=== PATIENT | male | born 1960 ===

== ENCOUNTER 2018-08-22 19:53 | Emergency (ER) | payer OTHER, MEDICARE ==
[2018-08-22 20:34] LABS: URINE APPEARANCE CLEAR; URINE COLOR YELLOW
[2018-08-22 20:35] LABS: URINE BILIRUBIN NEGATIVE (NEGATIVE); URINE BLOOD LARGE (NEGATIVE); URINE GLUCOSE (UA) NEGATIVE (NEGATIVE); URINE KETONE NEGATIVE (NEGATIVE); URINE LEUKOCYTE ESTERASE NEGATIVE (NEGATIVE); URINE NITRITE NEGATIVE (NEGATIVE); URINE PROTEIN NEGATIVE (NEGATIVE); URINE UROBILINOGEN 0.2 E.U./dL (0.20 - 1.00)
[2018-08-22] MEDS ORDERED: 0.9 % SODIUM CHLORIDE 1,000 ML BAG IV ONE (20:36)
[2018-08-22] MEDS ORDERED: KETOROLAC 30 MG/ML VIAL IVP ONE (20:36)
[2018-08-22 20:41] LABS: URINE BACTERIA NONE SEEN; URINE EPITHELIAL CELLS 0 - 2 (FEW); URINE WBC 0 - 2 (0-2/hpf)
--- NOTE | 2018-08-22 20:46 | Emergency Department Record ---
History of Present Illness - General Chief complaint: Pain Stated complaint: PAIN IN GROIN Time Seen by Provider: 08/22/18 20:15 Source: Patient Mode of Arrival: Ambulatory Limitations: No limitations - History of Present Illness Initial comments: pt has had r groin pain for 3 days that is getting progressively worse. no n/v/c/d MD Complaint: Abdominal Pain Onset/Timin -: Days(s) Severity scale (1-10): 6 Quality: Sharp Consistency: Constant, Getting worse Improves with: Nothing Associated Symptoms: Denies other symptoms - Related Data Home Medications Medication Instructions Recorded Confirmed Last Taken Carbidopa/Levodopa 25Mg/100Mg 2.5 each PO TID 08/22/18 08/22/18 Unknown [Sinemet] Carbidopa/Levodopa [Sinemet Cr 1 each PO QHS 08/22/18 08/22/18 Unknown 50-200 Tablet] Diazepam 5 mg PO Q12H PRN 08/22/18 08/22/18 Unknown Escitalopram Oxalate [Lexapro] 20 mg PO DAILY 08/22/18 08/22/18 Unknown Nadolol 20 mg PO QHS 08/22/18 08/22/18 Unknown Temazepam 15 mg PO QHS 08/22/18 08/22/18 Unknown Previous Rx's Medication Instructions Recorded Hydrocodone/Acetaminophen [[place] 1 each PO Q6HR #12 tablet 08/22/18 5-325 Tablet] Allergies Allergy/AdvReac Type Severity Reaction Status Date / Time No Known Drug Allergies Allergy Verified 08/22/18 20:08 Travel Screening - Travel/Exposure Within Last 30 Days Have you traveled within the last 30 days?: No - Travel Symptoms Symptom Screening: None Review of Systems Reviewed: No additional complaints except as noted below Constitutional: Reports: As per HPI. Denies: Chills, Fever, Malaise, Night sweats, Weakness, Weight change Eyes: Reports: As per HPI. Denies: Eye discharge, Eye pain, Photophobia, Vision change ENT: Reports: As per HPI. Denies: Congestion, Dental pain, Ear pain, Epistaxis, Hearing loss, Throat pain Respiratory: Reports: As per HPI. Denies: Cough, Dyspnea, Hemoptysis, Stridor, Wheezes Cardiovascular: Reports: As per HPI. Denies: Arrhythmia, Chest pain, Dyspnea on exertion, Edema, Murmurs, Orthopnea, Palpitations, Paroxysmal nocturnal dyspnea, Rheumatic Fever, Syncope Endocrine: Reports: As per HPI. Denies: Fatigue, Heat or cold intolerance, Polydipsia, Polyuria Gastrointestinal: Reports: As per HPI, Abdominal pain. Denies: Constipation, Diarrhea, Hematemesis, Hematochezia, Melena, Nausea, Vomiting Genitourinary: Reports: As per HPI. Denies: Dysuria, Frequency, Hematuria, Incontinence, Retention, Testicular pain, Testicular mass, Urgency Musculoskeletal: Reports: As per HPI. Denies: Arthralgia, Back pain, Gout, Joint swelling, Myalgia, Neck pain Skin: Reports: As per HPI. Denies: Bruising, Change in color, Change in hair/nails, Lesions, Pruritus, Rash Neurological: Reports: As per HPI. Denies: Abnormal gait, Confusion, Headache, Numbness, Paresthesias, Seizure, Tingling, Tremors, Vertigo, Weakness Psychiatric: Reports: As per HPI. Denies: Anxiety, Auditory hallucinations, Depression, Homicidal thoughts, Suicidal thoughts, Visual hallucinations Hematological/Lymphatic: Reports: As per HPI. Denies: Anemia, Blood Clots, Easy bleeding, Easy bruising, Swollen glands Past Medical History - SOCIAL HISTORY Smoking Status: Former smoker - RESPIRATORY Hx Respiratory Disorders: Yes Hx Pneumonia: Yes Hx Sleep Apnea: Yes Hx of CPAP: No (getting CPAP soon.) - CARDIOVASCULAR Hx Cardio Disorders: Yes Hx Hypertension: Yes - NEURO Hx Neuro Disorders: Yes Hx Parkinson's Disease: Yes - GI Hx GI Disorders: Yes Hx Reflux: Yes - Hx Genitourinary Disorders: Yes Hx Prostate Problems: Yes - ENDOCRINE Hx Endocrine Disorders: No - MUSCULOSKELETAL Hx Musculoskeletal Disorders: Yes Hx Arthritis: Yes - PSYCH Hx Psych Problems: Yes Hx Anxiety: Yes Hx Depression: Yes - HEMATOLOGY/ONCOLOGY Hx Hematology/Oncology Disorders: No Family Medical History Any Significant Family History?: Yes Family Hx Comment (NOT TO BE USED IN PLACE OF ITEMS BELOW): Mom w/Parkinson's Hx Cancer: Brother/Sister *Cancer Comment: Sister at 8yo Hx Dementia: Father, Mother Hx Depression: Mother, Brother/Sister *Depression Comment: Brother suicide Hx Diabetes: Mother Hx HTN: Mother Hx Stroke: Father Physical Exam - General General Appearance: Alert, Oriented x3, Cooperative, Mild distress - Head Head exam: Normal inspection - Eye Eye exam: Normal appearance, PERRL, EOMI Pupils: Normal accommodation - ENT ENT exam: Normal exam, Mucous membranes moist, Normal external ear exam, Normal orophraynx Ear exam: Normal external inspection. negative: External canal tenderness Nasal Exam: Normal inspection. negative: Discharge, Sinus tenderness Mouth exam: Normal external inspection, Tongue normal Teeth exam: Normal inspection. negative: Dental caries Throat exam: Normal inspection. negative: Tonsillar erythema, Tonsillar exudate - Neck Neck exam: Normal inspection, Full ROM. negative: Tenderness - Respiratory Respiratory exam: Normal lung sounds bilaterally. negative: Respiratory distress - Cardiovascular Cardiovascular Exam: Regular rate, Normal rhythm, Normal heart sounds - GI/Abdominal GI/Abdominal exam: Soft, Normal bowel sounds, Tenderness (rlq/groin) - Rectal Rectal exam: Deferred - exam: Deferred - Extremities Extremities exam: Normal inspection, Full ROM, Normal capillary refill. negative: Tenderness - Back Back exam: Reports: Normal inspection, Full ROM. Denies: Muscle spasm, Rash noted, Tenderness - Neurological Neurological exam: Alert, CN II-XII intact, Normal gait, Oriented X3 - Psychiatric Psychiatric exam: Normal affect, Normal mood - Skin Skin exam: Dry, Intact, Normal color, Warm Course Vital Signs 08/22/18 20:06 Temperature 97.4 F L Pulse Rate [ 97 H Left] Respiratory 16 Rate Blood Pressure 148/124 [Left Arm] Pulse Ox 98 Medical Decision Making - Lab Data Result diagrams: 08/22/18 20:55 08/22/18 20:55 Lab Results 08/22/18 Range/Units 20:34 Urine Color Yellow Urine Appearance Clear Urine pH 7.5 (5.0-8.0) Ur Specific [place] 1.010 (1.002-1.030) Urine Protein Negative (NEGATIVE) Urine Glucose (UA) Negative (NEGATIVE) Urine Ketones Negative (NEGATIVE) Urine Blood Large H (NEGATIVE) Urine Nitrite Negative (NEGATIVE) Urine Bilirubin Negative (NEGATIVE) Urine Urobilinogen 0.2 (0.20 - 1.00) E.U./dL Ur Leukocyte Esterase Negative (NEGATIVE) Disposition Disposition: Discharge Clinical Impression: Renal lithiasis, Lung nodule, Renal cyst Hydronephrosis Qualifiers: Hydronephrosis type: with ureteral calculous obstruction Qualified Code(s): N13.2 - Hydronephrosis with renal and ureteral calculous obstruction Disposition: Home, Self-Care Condition: (1) Good Instructions: Kidney Stones (ED), How to Strain Your Urine (ED) Additional Instructions: follow up with family doctor. return sooner if worse. push fluids. motrin for pain with food. have repeat ct of lung in 6 months Prescriptions: Hydrocodone/Acetaminophen [[place] 5-325 Tablet] 1 each PO Q6HR #12 tablet Referrals: ALEISHA JOHNSON M.D. [MEDICAL DOCTOR] - [facility] [Provider Group] Forms: Patient Portal Access Quality - Quality Measures Quality Measures: N/A - Blood Pressure Screening Does Patient Have Any of the Following: No Blood Pressure Classification: Hypertensive Reading Systolic Measurement: 150 Diastolic Measurement: 93 Screening for High Blood Pressure: < First Hypertensive BP, F/U Documented > [G8950] First Hypertensive Follow-up Interventions: Follow-up with rescreen GT 1 day and LT 4 weeks.
[2018-08-22 21:09] LABS: ABSOLUTE NEUTROPHIL COUNT 3.06; BASO % 0.2 % (0-6); EOS % 2.6 % (0-6); GRAN % 61.5 % (47-80); HEMATOCRIT 43.4 % (42.0-52.0); HEMOGLOBIN 14.9 gm/dl (14.0-18.0); LYMPH % 25.2 % (16-45); MEAN CELL VOLUME 90.6 fl (81-97); MEAN CORPUSCULAR HEMOGLOBIN 31.1 pg (27-33); MEAN CORPUSCULAR HGB CONC 34.3 g/dl (32-36); MONO % 10.5 % (0-9); PLATELET COUNT 97 K/uL (130-400); RED BLOOD COUNT 4.79 M/uL (4.40-5.70); RED CELL DISTRIBUTION WIDTH 13.2 % (11.5-14.5)
[2018-08-22 21:21] LABS: BLOOD UREA NITROGEN 18 mg/dL (6-20); CREATININE 0.9 mg/dL (0.7-1.2); EST GLOMERULAR FILTRATION RATE > 60 mL/min
[2018-08-22 21:24] LABS: GLUCOSE,RANDOM 133 mg/dL (74-109)
[2018-08-22] MEDS ORDERED: ONDANSETRON HCL IV 4 MG/2 ML VIAL IVP ONE (22:13)
[2018-08-22] MEDS ORDERED: HYDROMORPHONE HCL 2 MG/ML VIAL IVP ONE (22:13)
--- NOTE | 2018-08-23 23:48 | CT SCAN REPORT ---
EXAM: CT SCAN ABDOMEN/PELVIS WO CONTRAST HISTORY: RIGHT LOWER QUADRANT PAIN THAT STARTED TWO DAYS AGO, HAS GOTTEN WORSE. TECHNIQUE: Axial CT scan of the abdomen and pelvis obtained without oral or IV contrast. COMPARISON: No prior CT with which to compare. FINDINGS: There are some splenic calcifications, likely representing calcified splenic granulomas. There are probably also some small calcified gallstones in the dependent portion of the gallbladder. Gallbladder is not appreciably distended and there is no adjacent inflammatory-type change seen to suggest acute cholecystitis. There are several tiny calcifications in the right kidney and some in the left as well consistent with bilateral tiny currently nonobstructing intrarenal calculi. There is also mild hydronephrosis and hydroureter on the right with the dilated right ureter leading to an approximately 3 mm calculus at the region of the right UVJ. No hydronephrosis or hydroureter on the left with no definite left ureteral calculus evident. There also appear to be some low-attenuation masses bilaterally in the kidneys incompletely evaluated without IV contrast. These are presumably bilateral renal cysts although, if not previously documented, follow-up non-emergent MRI of the kidneys would be suggested to confirm, if not contraindicated. Evaluation of the bowel and viscera extremely limited without oral or IV contrast. Given this limitation, no definite hepatic, splenic, adrenal, or pancreatic mass identified. There does appear to be a right inguinal hernia containing adipose tissue but no bowel. Small amount of prostate calcification. Appendix not well seen but no appendicitis identified. Very small umbilical hernia containing adipose tissue but no bowel. There is a calcified granuloma, about 7 mm in size, in the left lower lobe. There is a tiny subpleural nodule in the right base laterally that is noncalcified measuring about 4.7 mm in size. This is most likely benign but a follow-up chest CT in [id number] suggested to confirm a stable appearance, if there are no older CT scans that include the right lung base that could confirm a chronic unchanged appearance for a couple of years or more. No free intraperitoneal air evident. Prominent facet joint arthropathy in the lumbar spine. IMPRESSION: 1. APPROXIMATELY 3 MM DISTAL RIGHT URETERAL CALCULUS AT THE RIGHT UVJ CAUSING A COMPONENT OF OBSTRUCTION. 2. ADDITIONAL BILATERAL SMALL CURRENTLY NONOBSTRUCTING INTRARENAL CALCULI. 3. MULTIPLE, SOMEWHAT POORLY SEEN, LOW-ATTENUATION MASSES IN BOTH KIDNEYS, PRESUMABLY MULTIPLE CYSTS BUT INCOMPLETELY EVALUATED ON THIS NONCONTRAST CT. IF NOT PREVIOUSLY DOCUMENTED SUCH, FOLLOW-UP MRI OF THE KIDNEYS WOULD BE SUGGESTED, IF NOT CONTRAINDICATED. 4. CALCIFIED GRANULOMA LEFT LOWER LOBE WITH CALCIFIED SPLENIC GRANULOMAS. 5. INDETERMINATE 4.7 MM SUBPLEURAL NODULE RIGHT BASE. [id number] CHEST CT IN [id number] SUGGESTED, IF THERE ARE NO OLD CT'S ELSEWHERE TO CONFIRM A STABLE APPEARANCE FOR AT LEAST TWO YEARS. 6. DEGENERATIVE CHANGE IN THE SPINE. 7. RIGHT INGUINAL HERNIA CONTAINING ADIPOSE TISSUE BUT NO BOWEL. JOB NUMBER: [id number] [facility]
== END 2018-08-22 23:12 | disposition home or self-care (01) ==
LOC: ER 19:53
DX: N13.2 Hydronephrosis with renal and ureteral calculous obstruction (principal); R91.1 Solitary pulmonary nodule; N28.1 Cyst of kidney, acquired; I10 Essential (primary) hypertension; Z87.891 Personal history of nicotine dependence
CPT/HCPCS: 99284 ×2; 96374; 96375; 96361; 85025; 80048; 81001; 74176; J1885; J2405; J1170; J7030